=== PATIENT | female | born 1995 | race Caucasian/White ===

== ENCOUNTER → 2020-09-18 15:35 | Outpatient (CLI) | payer OTHER, SELFPAY ==
[2020-09-18 16:15] LABS: Absolute Lymphocyte Count 2.18 X10^3/uL (0.83-4.51); Basophil# 0.03 X10^3/uL; Basophil% 0.3 % (0-1); Eosinophil# 0.21 X10^3/uL; Eosinophils% 1.8 % (0-5); Hematocrit 36.9 % (37-47); Hemoglobin 11.9 g/dL (12.0-15.0); Lymphocyte # 2.18 X10^3/ul (4.0); Lymphocyte % 18.5 % (19-41); Mean Corp Hgb Conc 32.2 g/dL (32-36); Mean Corpuscular Hgb 27.2 pg (27.0-32.0); Mean Corpuscular Volume 84.4 fL (81-99); Mean Platelet Vol. 9.2 fl (6.2-12.0); Monocyte# 1.34 X10^3/uL; Monocyte% 11.4 % (0-10); NRBC Flagged by Analyzer 0 % (0-5); Neutrophil # 7.97 X10^3/uL (2.7-7.7); Neutrophil % 67.7 % (47-70); Platelet Count 338 K/mm3 (150-450); RBC Distribution Width CV 12.6 % (11.6-14.6); RBC Distribution Width SD 38.8 fl (35.1-43.9); Red Blood Count 4.37 M/mm3 (4.2-5.4); White Blood Count 11.8 K/mm3 (4.4-11.0)
[2020-09-19 09:25] LABS: HIV - WCH Non-Reactive (Nonreactive); Hepatitis B Surface Antigen Non-Reactive (Nonreactive); Hepatitis C Antibody Non-Reactive (Nonreactive); Rubella IgG Reactive (Nonreactive)
[2020-09-23 07:07] LABS: Chlamydia By Nucleic Acid AMP Negative (Negative)
[2020-09-23 09:25] LABS: Gonococcus By Nucleic Acid AMP Negative (Negative)
[2020-09-23 14:26] LABS: Chlamydia By Nucleic Acid AMP NEGATIVE; Gonococcus By Nucleic Acid AMP NEGATIVE; HPV Reflexed? NOT INDICATED
[2020-09-25 01:40] LABS: Prenatal RPR NONREACTIVE (NONREACTIVE)
== END ==
PROVIDERS: Visit Provider Obstetrics & Gynecology
DX: Z12.4 Encounter for screening for malignant neoplasm of cervix (principal); Z11.3 Encounter for screening for infections with a predominantly sexual mode of transmission; Z34.81 Encounter for supervision of other normal pregnancy, first trimester
CPT/HCPCS: 36415; 85025; 86703; 86762; 86803; 87086; 87088; 87340; 87491; 87591; 88142

== ENCOUNTER → 2021-01-27 16:57 | Outpatient (CLI) | payer OTHER, SELFPAY ==
[2021-01-27 17:22] LABS: Hematocrit 31.7 % (37-47); Hemoglobin 10.2 g/dL (12.0-15.0); Mean Corp Hgb Conc 32.2 g/dL (32-36); Mean Corpuscular Hgb 27.1 pg (27.0-32.0); Mean Corpuscular Volume 84.1 fL (81-99); Platelet Count 338 K/mm3 (150-450); RBC Distribution Width CV 13.5 % (11.6-14.6); RBC Distribution Width SD 41.6 fl (35.1-43.9); Red Blood Count 3.77 M/mm3 (4.2-5.4); White Blood Count 12.7 K/mm3 (4.4-11.0)
[2021-01-27 17:30] LABS: Glucose Challenge Gest 1H 50g 86 mg/dL (70-140)
== END ==
PROVIDERS: Visit Provider Obstetrics & Gynecology
DX: Z34.83 Encounter for supervision of other normal pregnancy, third trimester (principal)
CPT/HCPCS: 82950; 85027

== ENCOUNTER → 2021-04-20 16:13 | Outpatient (CLI) | payer OTHER, SELFPAY | PROVIDERS: Visit Provider Obstetrics & Gynecology | DX: Z36.85 Encounter for antenatal screening for Streptococcus B (principal) | CPT/HCPCS: 87081 ==

== ENCOUNTER → 2021-04-28 16:58 | Outpatient (CLI) | payer OTHER, SELFPAY ==
[2021-04-28 17:01] LABS: Mucous, Urine 0 SEEN /hpf (<or=2+); Red Blood Cells-Urine 0 SEEN /hpf (0-5)
[2021-04-28 17:50] LABS: Hematocrit 34.4 % (37-47); Hemoglobin 10.9 g/dL (12.0-15.0); Mean Corp Hgb Conc 31.7 g/dL (32-36); Mean Corpuscular Hgb 25.9 pg (27.0-32.0); Mean Corpuscular Volume 81.7 fL (81-99); Mean Platelet Vol. 10.6 fl (6.2-12.0); Platelet Count 345 K/mm3 (150-450); RBC Distribution Width CV 14.6 % (11.6-14.6); RBC Distribution Width SD 43.3 fl (35.1-43.9); Red Blood Count 4.21 M/mm3 (4.2-5.4)
[2021-04-28 18:03] LABS: Color, Urine Yellow (Yellow); Glucose, Dipstick Normal (Normal); Ketone-Dipstick Negative (Negative); Leukocyte Esterase-Dipstick 25 /ul (Negative); Nitrite-Dipstick Negative (Negative); Occult Blood-Urine Negative /ul (Negative); Protein-Dipstick Negative (Negative); Urine Bilirubin Dipstick Negative (Negative); Urine Clarity Clear (Clear); Urine Urobilinogen Normal (Normal)
[2021-04-28 18:10] LABS: Protein, Urine (Random) 11.1 mg/dL (<11.9); Protein:Creat Ratio 222 mg/g CRE (0-200)
[2021-04-28 18:13] LABS: ALB/GLOB Ratio 0.6 RATIO (0.9-2.4); AST(SGOT) 15 U/L (15-37); Alanine Aminotransfer ALT/SGPT 21 U/L (13-56); Albumin, Serum 2.9 g/dL (3.2-5.0); Alkaline Phosphatase 180 U/L (45-117); Anion Gap 5 (5-15); BUN 9 mg/dL (7-18); BUN/Creat Ratio 22.3 RATIO (10-20); Calcium,Total 9.4 mg/dL (8.5-10.1); Chloride 107 mmol/L (98-107); EST Glomerular Filtration Rate 202 mL/min (>60); Est Glom Filt Rate - Afr Amer 244 mL/min (>60); Globulin 4.5 g/dL (2.2-4.2); Glucose 62 mg/dL (74-106); LDH 177 U/L (84-246); Protein, Total 7.4 g/dL (6.4-8.2); Sodium Level 137 mmol/L (136-145)
[2021-04-28 18:35] LABS: Amorphous Sediment 1+; Bacteria 1+ /hpf (None Seen); Squamous Epithelial Cells - UA 0-5 SEEN /hpf (5-10); White Blood Cells 0-5 SEEN /hpf (0-5)
== END ==
PROVIDERS: Visit Provider Obstetrics & Gynecology
DX: I10 Essential (primary) hypertension (principal)
CPT/HCPCS: 36415; 80053; 81001; 82570; 83615; 84156; 85027

== ENCOUNTER 2021-05-06 12:30 | Inpatient (IN) | payer OTHER, SELFPAY ==
[2021-05-06] VITALS (14 sets, daily range): BP systolic 121–147; BP diastolic 75–100; PULSE 73–102; TEMP 36.5–37.2; O2SAT 96–98; BMI 34.9
[2021-05-06] MEDS: Lactated Ringers 1,000 ML 50 ML IV (13:35)
[2021-05-06 14:00] LABS: Absolute Neutrophil Count 7.6 X10^3/uL (2.0-7.7); Basophil# 0.03 X10^3/uL; Basophil% 0.3 % (0-1); Eosinophils% 0.9 % (0-5); Hematocrit 33.3 % (37-47); Hemoglobin 10.4 g/dL (12.0-15.0); Lymphocyte % 15.8 % (19-41); Mean Corp Hgb Conc 31.2 g/dL (32-36); Mean Corpuscular Hgb 25.7 pg (27.0-32.0); Mean Corpuscular Volume 82.2 fL (81-99); Monocyte# 1.31 X10^3/uL; Monocyte% 12.1 % (0-10); NRBC Flagged by Analyzer 0 % (0-5); Neutrophil # 7.56 X10^3/uL (2.7-7.7); Neutrophil % 70.1 % (47-70); Platelet Count 294 K/mm3 (150-450); RBC Distribution Width CV 15.2 % (11.6-14.6); RBC Distribution Width SD 44.9 fl (35.1-43.9); Red Blood Count 4.05 M/mm3 (4.2-5.4); White Blood Count 10.8 K/mm3 (4.4-11.0)
[2021-05-06 14:10] LABS: Protein:Creat Ratio 284 mg/g CRE (0-200)
[2021-05-06] MEDS: miSOPROStol 25 MCG TABLET VAGINAL (14:14)
[2021-05-06 14:16] LABS: ALB/GLOB Ratio 0.6 RATIO (0.9-2.4); AST(SGOT) 14 U/L (15-37); Alanine Aminotransfer ALT/SGPT 18 U/L (13-56); Albumin, Serum 2.6 g/dL (3.2-5.0); Alkaline Phosphatase 180 U/L (45-117); Anion Gap 7 (5-15); BUN 8 mg/dL (7-18); BUN/Creat Ratio 23.3 RATIO (10-20); Calcium,Total 8.8 mg/dL (8.5-10.1); Chloride 108 mmol/L (98-107); Creatinine, Serum 0.34 mg/dL (0.55-1.02); EST Glomerular Filtration Rate 244 mL/min (>60); Est Glom Filt Rate - Afr Amer 295 mL/min (>60); Estimated Creatinine Clearance 207.42 ml/min; Globulin 4.6 g/dL (2.2-4.2); Glucose 70 mg/dL (74-106); LDH 168 U/L (84-246); Potassium 3.9 mmol/L (3.5-5.1); Protein, Total 7.2 g/dL (6.4-8.2); Sodium Level 137 mmol/L (136-145); Uric Acid 3.3 mg/dL (2.6-6.0)
--- NOTE | 2021-05-06 17:04 | PCM.HP.OB ---
HPI - General General Date of Admission: 05/06/21 HPI Narrative KARY MORTON, is a 25 F who presents at 39 1/7 wga for IOL. She was sent from the office with elevated BPs to 140s-150s/90s. Denies headache, vision changes, abdominal pain. [facility] Medical History (Updated 05/06/21 @ 17:[address] Adamaris Lo MD) Depression Home Medications [id number] [] 1 tab PO DAILY 05/06/21 [History Last Taken 05/05/21] Allergy/AdvReac Type Severity Reaction Status Date / Time No Known Allergies Allergy Verified 05/06/21 13:22 Family History Mother Asthma Social History Smoking Status: Former smoker History 2 Elective abortions Hx Para 1 Spontaneous abortions Hx # Term Pregnancies 1 Ectopic pregnancies Hx # Pregnancies Multiple births # of living children 1 NST FHR Rate Baby A Baseline: 120 Variability:: Moderate Accelerations:: 15 x 15 Decelerations:: None NST Reactive:: Yes FHR Category:: Category I Uterine Activity:: irritability Vital Signs Vital Signs Vital Signs: 05/06/21 12:48 05/06/21 12:51 05/06/21 12:53 Temperature 97.7 F L Temperature Source Temporal Pulse Rate 85 85 91 Blood Pressure 140/94 H 140/94 H BP Systolic 140 140 BP Diastolic 94 94 Pulse Ox 98 98 05/06/21 13:06 05/06/21 13:22 05/06/21 13:36 Temperature Temperature Source Pulse Rate 102 H 88 77 Blood Pressure 147/100 H 126/85 H 134/88 H BP Systolic 147 126 134 BP Diastolic 100 85 88 Pulse Ox 05/06/21 13:51 05/06/21 14:49 05/06/21 16:55 Temperature 97.8 F Temperature Source Temporal Pulse Rate 99 80 76 Blood Pressure 137/89 H 133/76 H 121/78 H BP Systolic 137 133 121 BP Diastolic 89 76 78 Pulse Ox 98 Weight Weight: 89.539 kg Body Mass Index (BMI) 34.9 Physical Exam Narrative PHYSICAL EXAMINATION General Appearence: 25 yo female in no acute distress Vital Signs: AF, VSS Heart: RRR without rubs or gallops Lungs: CTA x 2 Breasts: deferred Abdomen: gravid, soft, nontender, nondistended Pelvis: Cervix: 1.5/50/-4, moderate and posterior Presentation: cephalic Fetus: Size: AGA Movement: present Heart: present NEUrO: +1 b/l LE DTRs, no clonus Labs Labs Labs: Blood Type B POSITIVE Antibody Screen NEGATIVE Hct 33.3 % (37-47) L Hgb 10.4 g/dL (12.0-15.0) L Rubella IgG Antibody Reactive (Nonreactive) Hep Bs Antigen Non-Reactive (Nonreactive) Neisseria gonorrhoeae DNA (MADDY) NEGATIVE HIV 1&2 Antibody Non-Reactive (Nonreactive) Glucose 1 Hr 50 gm 86 mg/dL (70-140) ACOG ANTEPARTUM RECORD - HISTORY AND PHYSICAL (05/06/2021) Name: KARY MORTON History of this : This is a 25 year old [id number] presents at 39 wks + 1 days gestation. OB Physician: CALLI CHAMORRO MD 's Physician: Rudi ...................................................................... : 1995 Age: 25 Address: [address] [place] [address] Phone: H) [phone] (O) [phone] Insurance Carrier: [facility] [phone] Emergency Contact: NED SANDRA [phone] ...................................................................... Final INOCENCIA: 05/12/21 By Ultrasound: PARITY: (G-Total Pregnancies P-Fullterm,Premature,Induced AB,Spont AB, Ectopics, Multiple,Living) INOCENCIA CONFIRMATION: By LMP: 12/08/20 Final INOCENCIA: 05/12/21 OB PROBLEM LIST: Declines genetic and carrier screening EPDS- 5 Hx of depression/anxiety, including pp depression. Treatment in high school for depression. 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 Illicit Drug Use - denies use of street drugs Sexual Activity - Residence - lives with Place of - [place], [place] Hours Worked - 20 Spouse-Sig Other Name - Ned Morton Spouse-Sig Other Occupation - rags laborer Spouse-Sig Other Phone No - [phone] Children Name(s) - Loan PRIOR DELIVERY HISTORY DEL DATE GEST LAB WT LB WT OZ TYPE ANES LABOR TX 06 Mar 13 39 24 5 15 Vag Local No ANTEPARTUM FLOW CHART VISIT GE RTC FU F F NC U U DATE WK MD WKS HT PN HR M SS BP ED WT NC GL D EF ST __ ____ ___ __ __ ___ __ __ __ ___ __ __ __ ___ __ 08 Apr 39 SHM 1 37 V + + 150/98 0 197 tr ne 1+ 40 -5 Mar JM 1 38 V + + 130/90 0 194 ne ne Mar JM 1 36 V + + O 132/94 sl 196 tr - Mar JM 2 34 T on + 132/82 0 192 ne ne Feb JM 2 32 V + + 126/80 0 187 ne ne Mar 27 JM 2 30 - + + 136/86 0 182 - - Feb 23 JM 2 28 - + + 128/68 sl 181 - - Feb 20 JM 4 25 - + + 132/84 0 178 - - January 16 JM 4 21 - + + 134/84 0 172 tr - Nov 10 JM 5 15 - + + 144/92 0 165 tr ne Nov 07 JM 4 12 - + 126/84 0 163 tr ne Oct 05 JM 4 7 - on US 122/86 0 162 - - ANTEPARTUM NOTE(S): May 06 2021: BP recl left side 148/90. occ bx olsen Apr 28 2021: Apr 20 2021: GBS and LARC, ctx's, pelvic pressure Apr 06 2021: Mar 23 2021: Mar 09 2021: Periodic Vulva itching,Good FM Feb 23 2021: Jan 27 2021: CBC,OGCT Today,Good FM Dec 30 2020: glucola given Nov 24 2020: Oct 28 2020: Sep 29 2020: fatigue COMPREHENSIVE ANTEPARTUM NOTE(S): May 06 2021: EFW 2971g (6lb9oz) at 36w6d US. BPs again elevated today. Denies sx preeclampsia. BPs elevated for last few weeks and prior hx gHTN vs. preeclampsia. To L for IOL and preeclamptic labs. Apr 28 2021: Kary is here with SO for PNV. At 38/0. States she is ready at home. Having good FM. Having no ctx. BP 130/90. Will retake lying on left side. No edema noted at this time Urine neg/neg. LSS retake after 10 min on left side 136/86 LSS Apr 28 2021: 38wks, initially with elevated BP but repeat after rest is wnl. Pt asymptomatic. For HELLP labs today. Scheduled for IOL at 39wks pitocin 05/11/21 at 7am. DELANEY Apr 23 2021: H taken to L. AB Apr 20 2021: Kary is here for a PNV w/ SO at 36 wks. Good FM. Sl edema in fingers. Occasional ctx's, constant pelvic pressure. GBS today, consent signed. LARC reviewed and declined. MK Apr 20 2021: 36 weeks, ultrasound today now cephalic and AGA. We will proceed with expectant management for vaginal delivery. GBS collected today. Apr 06 2021: Kary is here for PNV. Voicing no concerns. Feeling well with good FM. Having occasional BH ctx. No LOF or abnormal vag discharge. No edema noted. Urine neg/neg. LSS Apr 06 2021: 34wk, transverse, head maternal right. For growth u/s next vist. Educated on postion. Mar 23 2021: Kary is here for PNV. Feeling well and voices no concerns. Having good FM. No edema noted for this visit. Urine neg/neg. LSS Mar 23 2021: 32 weeks, no complaints. Will place in room for for bedside ultrasound next visit. DELANEY Mar 09 2021: Kary presents here today for PNV and reports that she has Good FM and feels well. Voiced concern regarding periodic vulvar area itching, then admits she shaves in that area as well. I explained about hair regrow and that can cause itching. She has tried alittle external Monistat, incase it was yeast. Declines offer for exam to check area. SHELL Mar 09 2021: 30wk, no complaints. DELANEY Feb 23 2021: Good FM. She has noticed some edema in her hands, can not wear her wedding bands sometimes. Taking an iron tablet once daily. kbm Feb 23 2021: 28wk, 1hr GTT wnl. DELANEY Jan 27 2021: 25wk, 1hr GTT today. DELANEY Dec 30 2020: Comp u/s today. Glucola given with instructions. LMT Dec 30 2020: 21wks, anatomy u/s wnl. Female, pt and FOB not happy. 1hr GTT next visit. DELANEY Nov 24 2020: Kary is here with SO for PNV. BP elevated slightly 144/92 on right, 142/92 on left. Will have her lay on left side and retake. Feeling well with adequate food and fluid intake. Having good FM. States she has no compliants. No edema noted. Urine tr/neg. LSS BP retaken after 10 min 132/88. LSS Nov 24 2020: 15wk, initially with elevated BP's, recheck wnl. Asymptomatic. For Anatomy u/s at next visit. DELANEY Oct 28 2020: Kary is here for PNV. Very quiet and withdrawn. States she is feeling fine and having very little nausea. Able to eat and drink without difficulty. Encouraged increase fluid intake. No edema present today. Urine tr/neg. No concerns for today. LSS Oct 28 2020: 12wks, nausea resolved. DELANEY Oct 02 2020: TELEHEALTH NOB VISIT, DURATION 35 MINUTES. Kary is a 25 year old with an INOCENCIA of 05/12/2021, current GA is 8 w 2 d. She resides with her , Ned, and their 4-1/2 year old daughter, Loan. Her daughter was delivered by at [place]. Past history updated. Kary plans to deliver at [facility], she prefers not to have an epidural, and she will breastfeed. She shares that she had reji Sep 29 2020: Kary is here for a PNV with FOB. Pt continues to have mild fatigue. Reports nausea last week but it has since decreased. Denies cramping and spotting. Reminded pt to push fluids. No concerns or questions expressed at this time. LADONNA Sep 29 2020: 7wk, u/s today with final INOCENCIA: 05/12/21 by LMP c/w 7wk U/s. PNP wnl, B pos. Declines genetic screening. DELANEY REVIEW OF SYSTEMS: GENERAL - Denies fever, or chills SKIN - Denies rash, new skin lesions, or change in moles EYES - Denies blurred vision, or change in visual acuity EARS - Denies ear pain, or difficulty hearing NOSE - Denies nasal congestion, discharge, or bleeding MOUTH - Denies sore throat, or difficulty swallowing NECK - Denies pain or swelling RESPIRATORY - Denies shortness of breath, cough, wheezing CARDIOVASCULAR - Denies palpitations, chest pain, orthopnea, PND, peripheral edema, syncope or claudication GASTROINTESTINAL - Denies nausea, vomiting, diarrhea, constipation, Denies abdominal pain, melena and or bright red blood GENITOURINARY - Denies dysuria, frequency of urination, urgency, or hesitancy MUSCULOSKELETAL - Denies joint or muscle pain, or back pain NEUROLOGICAL - Denies localized numbness, weakness, or tingling PSYCHIATRIC - Denies depression, anxiety, substance abuse or suicide attempts ENDOCRINE - Denies heat or cold intolerance, weight loss or gain, increasing thirst HEMATO-IMMUNOLOGIC - Denies easy bruising, bleeding, oral ulcerations or recurrent infections GENETICS SCREENING: Age 35+ years: No Thalassemia: No Neural Tube Defect: No Down Syndrome: No AILEEN-SACHS: No Sickle Cell Disease: No Hemophilia: No Musc. Dystrophy: No Cystic Fibrosis: No-declines screening Ngozi Chorea: No Mental Retardation: No Fragile X: No Other genetic: No Other defects: No SABs/still births: No Drugs since LMP: No INFECTION HISTORY: High risk AIDS: No High risk Hepatitis: No Exposed to TB: No Exposed to Herpes: No Rash/viral illness since LMP: No History of STD: No MENSTRUAL HISTORY: *Menses Amount/Duration: 5-6 DAYSMenses Regularity: RegularFrequency: monthlyMenarche (Age Onset): 11* PAST SUMMARY: PARITY: 1. Total Pregnancies............ 2 2. Full Term Pregnancies........ 1 3. Premature.................... 0 4. Abortions - Induced.......... 0 5. Abortions - Spontaneous...... 0 6. Ectopics..................... 0 7. Multiple Births.............. 0 8. Living Children.............. 1 PAST #1: Date of :.................. 03/03/16 Gestation Weeks:................ 39 Length of labor(hours):......... 24 Sex:............................ F Weight-lbs:............... 5 Weight-oz:................ 15 Type of Delivery:............... Vag Type of Anesthesia:............. Local Place of Delivery:.............. [facility] Treatment of Labor?:.... No Comment: IOL LAB TEST(S) ORDERED SINCE:08/15/20 05/06/2021 URIC ACID 05/06/2021 TYPE AND SCREEN 05/06/2021 PROTEIN+CREATININE RATIO,URINE 05/06/2021 LDH 05/06/2021 COMPREHENSIVE METABOLIC PROFIL 05/06/2021 CBC W/DIFF, AUTOMATED 04/28/2021 URINALYSIS, COMPLETE 04/28/2021 PROTEIN+CREATININE RATIO,URINE 04/28/2021 LDH 04/28/2021 COMPREHENSIVE METABOLIC PROFIL 04/28/2021 CBC-COMPLETE BLOOD CNT NO DIFF 04/23/2021 RULE OUT BETA STREP (GRP. B) 01/27/2021 GLUCOSE CHALLENGE GEST 1H 50G 01/27/2021 CBC-COMPLETE BLOOD CNT NO DIFF 09/24/2020 RPR 09/23/2020 LQD PAP RFX ASCUS-C/GC 09/23/2020 CHLAMYDIA/GC MADDY APTIMA 09/21/2020 CULTURE, URINE 09/19/2020 RUBELLA IGG 09/19/2020 HIV - WC 09/19/2020 HEPATITIS C ANTIBODY 09/19/2020 HEPATITIS B SURFACE ANTIGEN 09/18/2020 T AND S-NO CHARGE W/PNP 09/18/2020 CBC W/DIFF, AUTOMATED == ==== Order Observation Description Value Ref_Range A* Site == ==== Labor [facility]~[address] [place], [address]~ TYPE AND SCRE AB SCREEN GEL NEGATIVE ML LDH NOTE TAM LDH LDH 168 U/L 84-246 ML URIC ACID NOTE TAM URIC ACID URIC 3.3 mg/dL 2.6-6.0 ML The drugs N-Acetylcysteine and Metamizole may falsely depress this assay. COMPREHENSIVE M NOTE TAM COMPREHENSIVE M GLU 70 mg/dL 74-106 L ML Please note revised GLUCOSE reference range effective 09/30/2017. COMPREHENSIVE M BUN 8 mg/dL 7-18 ML COMPREHENSIVE M CREAT,SERUM 0.34 mg/dL 0.55-1.02 L ML The validity of the calculated GFR GFRAA in patients over 70 years has not been determined. Clinical correlation is essential. COMPREHENSIVE M EST GFR 244 mL/min >60 ML Non- GFR Calc COMPREHENSIVE M EST GFR - AA 295 mL/min >60 ML GFR Calc COMPREHENSIVE M ECRCL 207.42 ml/min ML COMPREHENSIVE M BUN/CRE 23.3 RATIO 10-20 H ML COMPREHENSIVE M T PROT 7.2 g/dL 6.4-8.2 ML COMPREHENSIVE M ALB 2.6 g/dL 3.2-5.0 L ML COMPREHENSIVE M GLOB 4.6 g/dL 2.2-4.2 H ML COMPREHENSIVE M A/G 0.6 RATIO 0.9-2.4 L ML COMPREHENSIVE M CA,TOTAL 8.8 mg/dL 8.5-10.1 ML COMPREHENSIVE M AST 14 U/L 15-37 L ML COMPREHENSIVE M ALK P 180 U/L 45-117 H ML COMPREHENSIVE M ALT 18 U/L 13-56 ML COMPREHENSIVE M T BILI 0.20 mg/dL 0.20-1.00 ML For patients on eltrombopag therapy, use of Dimension [employer] TBIL is not recommended. [facility] M NA 137 mmol/L 136-145 ML COMPREHENSIVE M POTASSIUM 3.9 mmol/L 3.5-5.1 ML COMPREHENSIVE M CL 108 mmol/L 98-107 H ML COMPREHENSIVE M CO2 22.0 mmol/L 21.0-32.0 ML COMPREHENSIVE M GAP 7 5-15 ML PROTEIN+CREATIN NOTE TAM PROTEIN+CREATIN UR CREAT 42.30 mg/dL NO RANGE EST. ML PROTEIN+CREATIN PROTEIN,UR.RAN. 12.0 mg/dL <11.9 H ML PROTEIN+CREATIN PROT:CRE RATIO 284 mg/g CRE 0-200 H ML CBC W/DIFF, AUT NOTE TAM CBC W/DIFF, AUT WBC 10.8 K/mm3 4.4-11.0 ML CBC W/DIFF, AUT RBC 4.05 M/mm3 4.2-5.4 L ML CBC W/DIFF, AUT HGB 10.4 g/dL 12.0-15.0 L ML CBC W/DIFF, AUT HCT 33.3 37-47 L ML CBC W/DIFF, AUT MCV 82.2 fL 81-99 ML CBC W/DIFF, AUT MCH 25.7 pg 27.0-32.0 L ML CBC W/DIFF, AUT MCHC 31.2 g/dL 32-36 L ML CBC W/DIFF, AUT RDW CV 15.2 11.6-14.6 H ML CBC W/DIFF, AUT RDW SD 44.9 fl 35.1-43.9 H ML CBC W/DIFF, AUT PLT 294 K/mm3 150-450 ML CBC W/DIFF, AUT MPV 11.0 fl 6.2-12.0 ML CBC W/DIFF, AUT NEUT% 70.1 47-70 H ML CBC W/DIFF, AUT LY% 15.8 19-41 L ML CBC W/DIFF, AUT MONO% 12.1 0-10 H ML CBC W/DIFF, AUT EO% 0.9 0-5 ML CBC W/DIFF, AUT BASO% 0.3 0-1 ML CBC W/DIFF, AUT IG% 0.800 0.0-0.9 ML IG% - Immature Granulocytes (promyelocytes, myelocytes and metamyelocytes) > 1% indicates that a LEFT SHIFT is Present. CBC W/DIFF, AUT ABSOLUTE NEUT 7.6 X10 3/uL 2.0-7.7 ML CBC W/DIFF, AUT ABSOLUTE LYMPH 1.70 X10 3/uL 0.83-4.51 ML CBC W/DIFF, AUT NUCLEATED RBC 0 0-5 ML URINALYSIS, COM NOTE TAM URINALYSIS, COM WBC 0-5 SEEN /hpf 0-5 ML URINALYSIS, COM RBC 0 SEEN /hpf 0-5 ML URINALYSIS, COM EPI,SQUAMOUS 0-5 SEEN /hpf 5-10 ML URINALYSIS, COM BACTERIA 1+ /hpf None Seen ML URINALYSIS, COM MUCUS 0 SEEN /hpf <or=2+ ML URINALYSIS, COM AMORPHOUS 1+ ML LDH NOTE TAM LDH LDH 177 U/L 84-246 ML COMPREHENSIVE M NOTE TAM COMPREHENSIVE M GLU 62 mg/dL 74-106 L ML Please note revised GLUCOSE reference range effective 09/30/2017. COMPREHENSIVE M BUN 9 mg/dL 7-18 ML [facility] CREAT,SERUM 0.40 mg/dL 0.55-1.02 L ML The validity of the calculated GFR GFRAA in patients over 70 years has not been determined. Clinical correlation is essential. [facility] M EST GFR 202 mL/min >60 ML Non- GFR Calc COMPREHENSIVE M EST GFR - AA 244 mL/min >60 ML GFR Calc COMPREHENSIVE M BUN/CRE 22.3 RATIO 10-20 H ML [facility] M T PROT 7.4 g/dL 6.4-8.2 ML COMPREHENSIVE M ALB 2.9 g/dL 3.2-5.0 L ML COMPREHENSIVE M GLOB 4.5 g/dL 2.2-4.2 H ML COMPREHENSIVE M A/G 0.6 RATIO 0.9-2.4 L ML COMPREHENSIVE M CA,TOTAL 9.4 mg/dL 8.5-10.1 ML COMPREHENSIVE M AST 15 U/L 15-37 ML COMPREHENSIVE M ALK P 180 U/L 45-117 H ML COMPREHENSIVE M ALT 21 U/L 13-56 ML COMPREHENSIVE M T BILI 0.20 mg/dL 0.20-1.00 ML For patients on eltrombopag therapy, use of Dimension [employer] TBIL is not recommended. COMPREHENSIVE M NA 137 mmol/L 136-145 ML COMPREHENSIVE M POTASSIUM 4.0 mmol/L 3.5-5.1 ML COMPREHENSIVE M CL 107 mmol/L 98-107 ML COMPREHENSIVE M CO2 25.0 mmol/L 21.0-32.0 ML COMPREHENSIVE M GAP 5 5-15 ML PROTEIN+CREATIN NOTE TAM PROTEIN+CREATIN UR CREAT 50.00 mg/dL NO RANGE EST. ML PROTEIN+CREATIN PROTEIN,UR.RAN. 11.1 mg/dL <11.9 ML PROTEIN+CREATIN PROT:CRE RATIO 222 mg/g CRE 0-200 H ML CBC-COMPLETE BL NOTE TAM CBC-COMPLETE BL WBC 13.0 K/mm3 4.4-11.0 H ML CBC-COMPLETE BL RBC 4.21 M/mm3 4.2-5.4 ML CBC-COMPLETE BL HGB 10.9 g/dL 12.0-15.0 L ML CBC-COMPLETE BL HCT 34.4 37-47 L ML CBC-COMPLETE BL MCV 81.7 fL 81-99 ML CBC-COMPLETE BL MCH 25.9 pg 27.0-32.0 L ML CBC-COMPLETE BL MCHC 31.7 g/dL 32-36 L ML CBC-COMPLETE BL RDW CV 14.6 11.6-14.6 ML CBC-COMPLETE BL RDW SD 43.3 fl 35.1-43.9 ML CBC-COMPLETE BL PLT 345 K/mm3 150-450 ML CBC-COMPLETE BL MPV 10.6 fl 6.2-12.0 ML RULE OUT BETA S NOTE TAM GLUCOSE CHALLEN NOTE TAM GLUCOSE CHALLEN GLU GEST 50G 1H 86 mg/dL 70-140 ML CBC-COMPLETE BL NOTE TAM CBC-COMPLETE BL WBC 12.7 K/mm3 4.4-11.0 H ML CBC-COMPLETE BL RBC 3.77 M/mm3 4.2-5.4 L ML CBC-COMPLETE BL HGB 10.2 g/dL 12.0-15.0 L ML CBC-COMPLETE BL HCT 31.7 37-47 L ML CBC-COMPLETE BL MCV 84.1 fL 81-99 ML CBC-COMPLETE BL MCH 27.1 pg 27.0-32.0 ML CBC-COMPLETE BL MCHC 32.2 g/dL 32-36 ML CBC-COMPLETE BL RDW CV 13.5 11.6-14.6 ML CBC-COMPLETE BL RDW SD 41.6 fl 35.1-43.9 ML CBC-COMPLETE BL PLT 338 K/mm3 150-450 ML CBC-COMPLETE BL MPV 10.0 fl 6.2-12.0 ML RPR NOTE TAM RPR RPR NONREACTIVE NONREACTIVE ML CULTURE, URINE NOTE TAM HEPATITIS C ANT NOTE TAM HEPATITIS C ANT HEPATITIS C AB Non-Reactive Nonreactive ML Non Reactive: < 0.8 Equivocal: >/= 0.8 to < 1.0 Reactive: >/= 1.0 The CDC recommends that a reactive/equivocal HCV antibody result be followed up by the HCV Nucleic Acid Amplification test (777642) HEPATITIS B LISSETTE NOTE TAM HEPATITIS B [place]TE HEPB SURFACE AG Non-Reactive Nonreactive ML HIV - [facility] NOTE TAM HIV - [facility] HIV - [facility] Non-Reactive Nonreactive ML RUBELLA IGG NOTE TAM RUBELLA IGG RUBELLA IGG Reactive Nonreactive ML Antibody Results Interpretation of Immune Status Non Reactive Presumed Non-Immune Equivocal Equivocal Reactive Presumed Immune Reason for Type AND Screen/Red Cells: Surgery? [facility]~[address] [place], [address]~ T AND BLOOD TYPE GEL B POSITIVE N ML T AND AB SCREEN GEL NEGATIVE N ML CBC W/DIFF, AUT NOTE TAM CBC W/DIFF, AUT WBC 11.8 K/mm3 4.4-11.0 H ML CBC W/DIFF, AUT RBC 4.37 M/mm3 4.2-5.4 ML CBC W/DIFF, AUT HGB 11.9 g/dL 12.0-15.0 L ML CBC W/DIFF, AUT HCT 36.9 % 37-47 L ML CBC W/DIFF, AUT MCV 84.4 fL 81-99 ML CBC W/DIFF, AUT MCH 27.2 pg 27.0-32.0 ML CBC W/DIFF, AUT MCHC 32.2 g/dL 32-36 ML CBC W/DIFF, AUT RDW CV 12.6 % 11.6-14.6 ML CBC W/DIFF, AUT RDW SD 38.8 fl 35.1-43.9 ML CBC W/DIFF, AUT PLT 338 K/mm3 150-450 ML CBC W/DIFF, AUT MPV 9.2 fl 6.2-12.0 ML CBC W/DIFF, AUT NEUT% 67.7 % 47-70 ML CBC W/DIFF, AUT LY% 18.5 % 19-41 L ML CBC W/DIFF, AUT MONO% 11.4 % 0-10 H ML CBC W/DIFF, AUT EO% 1.8 % 0-5 ML CBC W/DIFF, AUT BASO% 0.3 % 0-1 ML CBC W/DIFF, AUT IM GRAN % 0.300 % 0.0-0.9 ML IG% - Immature Granulocytes (promyelocytes, myelocytes and metamyelocytes) > 1% indicates that a LEFT SHIFT is Present. CBC W/DIFF, AUT ABSOLUTE NEUT 8.0 X10 3/uL 2.0-7.7 H ML CBC W/DIFF, AUT ABSOLUTE LYMPH 2.18 X10 3/uL 0.83-4.51 ML CBC W/DIFF, AUT NRBC, FLAGGED 0 % 0-5 ML LQD PAP RFX ASC NOTE TAM LQD PAP RFX ASC CHLAMY,NUC ACID NEGATIVE LCI LQD PAP RFX ASC GC BY NUC ACID NEGATIVE LCI CHLAMYDIA/GC NA NOTE TAM CHLAMYDIA/GC NA CHLAMY,NUC ACID Negative Negative LC CHLAMYDIA/GC NA GC BY NUC ACID Negative Negative LC Performed at: =[address] [id number] Senior Officer: Elaine Archibald MD, Phone: [phone] B POSITIVE Group B Beta Streptococcus is not isolated. Urine Culture ORGANISM 1: Lactobacillus species [place] Count >100,000 Assessment & Plan (1) : QUALIFIERS: Weeks of gestation: 39 weeks Qualified Code(s): Z3A.39 - 39 weeks gestation of (2) Gestational hypertension: QUALIFIERS: Trimester: third trimester Qualified Code(s): O13.3 - Gestational [-induced] hypertension without significant proteinuria, third trimester PLAN: Cytotec for IOL Cat I FHR No si/sx preeclampsia and labs wnl
[2021-05-06] MEDS: Mag Hydrox/Al Hydrox/Simeth 30 ML UDC PO (17:36)
[2021-05-06] MEDS: 0.9% Saline Lock 10 ML Syringe IV (17:37)
[2021-05-06] MEDS: miSOPROStol 25 MCG TABLET PO ×2 (18:23→22:37)
[2021-05-07] VITALS (26 sets, daily range): BP systolic 124–158; BP diastolic 67–94; PULSE 77–206; TEMP 36.2–37.2; O2SAT 80–99
[2021-05-07] MEDS: miSOPROStol 25 MCG TABLET PO ×2 (02:29→06:41)
--- NOTE | 2021-05-07 10:00 | PCM.PN.OB ---
Subjective Subjective Contractions intensity. No leaking of fluid. Denies headache, vision changes. + FM. Objective Data Objective Data Vital Signs: Vital Signs Temp Pulse BP Pulse Ox 97.4 F L 108 H 135/67 H 97 05/07/21 16:05 05/07/21 17:20 05/07/21 17:20 05/07/21 16:05 Weight: 89.539 kg Body Mass Index (BMI) 34.9 Intake & Output: Intake and Output for Last 24 Hours 05/05/21 05/06/21 05/07/21 23:59 23:59 23:59 Intake Total 196.67 / 196.67 Balance 196.67 / 196.67 Lab / Micro Data Result Diagrams: 05/06/21 13:35 05/06/21 13:35 Micro: Microbiology 05/06/21 19:30 Nasal Secretion SARS-CoV-2 Antigen (Rapid) - Final Physical Exam Narrative GEN - NAD< AAo x 3. FHR 140, moderate variability, + accelerations, no decelerations TOCO 3/10 min SVE 3/60/-3, moderate, midposition Assessment & Plan (1) Gestational hypertension: QUALIFIERS: Trimester: third trimester Qualified Code(s): O13.3 - Gestational [-induced] hypertension without significant proteinuria, third trimester (2) : QUALIFIERS: Weeks of gestation: 39 weeks Qualified Code(s): Z3A.39 - 39 weeks gestation of PLAN: Amniotomy performed with clear fluid Will start pitocin if no significant progress at noon Cat I FHR
[2021-05-07] MEDS: 0.9% Saline Lock 10 ML Syringe IV (12:01)
[2021-05-07] MEDS: Oxytocin 10 UNITS/ML Vial IM (18:15)
--- NOTE | 2021-05-07 19:36 | OP.PCM_ITS ---
Assessment & Plan (1) : QUALIFIERS: Weeks of gestation: 39 weeks Qualified Code(s): Z3A.39 - 39 weeks gestation of (2) Gestational hypertension: QUALIFIERS: Trimester: third trimester Qualified Code(s): O13.3 - Gestational [-induced] hypertension without significant proteinuria, third trimester Vaginal Delivery Maternal Presentation Maternal Presentation: Medically Indicated Induction Type of Induction: Amniotomy and Cytotec Medical Reason for Induction: Gestational Hypertension Operative Information Date of Procedure: 05/07/21 Pre-Operative Diagnosis: 1. 39 2/7 weeks gestation 2. Gestational hypertension Post-Operative Diagnosis: 1. 39-2/7 weeks gestation 2. Gestational hypertension Surgery / Procedure Performed: Spontaneous Vaginal Delivery Type of Anesthesia: Local with 1% Lidocaine Estimated Blood Loss: 250 ml Findings Description of Procedure: Patient was 9 cm on my arrival. She labor to 10 cm with a bulging perineum. We began pushing and she delivered a female infant in LEIA. Nuchal cord was reduced and mouth and nares were bulb suctioned at the perineum. The was placed on the maternal abdomen and further attended by nursery personnel. The cord was doubly clamped and cut at approximately 3 minutes of life. The placenta delivered spontaneously and appeared intact on inspection. A second-degree perineal laceration was repaired using 3-0 Vicryl Rapide followi ng injection of 1% lidocaine. There was good hemostasis. Sponge and needle counts were correct x2. Presentation: Vertex Time of Membrane Rupture: 92705/07/21 Amniotic Fluid Description: Clear Placental Delivery Description: Spontaneous Placenta Disposition: [facility] Cord Vessel Description: 3 Vessels Cord Entanglement: Around neck x 1, loose Nuchal Cord Compression: Without compression Infant A Gender: Female (1 minute): 8 (5 minute): 9 Delayed Cord Clamping: Yes Post Vaginal Delivery Medications Given After Delivery: - (IM Pitocin) Laceration: Midline, Perineal Extension/lac and 2nd degree Complication Complications: None
[2021-05-07] MEDS: Ibuprofen 600 MG Tablet PO (20:16)
[2021-05-08 00:35] VITALS: BP 144/85; PULSE 105; RESP 18; TEMP 37.1
[2021-05-08 05:35] VITALS: BP 152/89; PULSE 81; RESP 18; TEMP 36.7
--- NOTE | 2021-05-08 07:22 | NURSING ---
report given to Tomer Jones RN and Jose Luis Mcgowan RN who are assuming care of pt at this time
[2021-05-08 08:00] VITALS: BP 121/80; PULSE 98; RESP 16; TEMP 36.8
--- NOTE | 2021-05-08 08:31 | PCM.PN.OB ---
Subjective Subjective No issues overnight. Denies headache, vision changes or abdominal pain. is going well. Objective Data Objective Data Vital Signs: Vital Signs Temp Pulse Resp BP Pulse Ox 98.0 F 81 18 152/89 H 97 05/08/21 05:35 05/08/21 05:35 05/08/21 05:35 05/08/21 05:35 05/07/21 20:18 Oxygen Delivery Method Room Air Weight: 89.539 kg Body Mass Index (BMI) 34.9 Intake & Output: Intake and Output for Last 24 Hours 05/06/21 05/07/21 05/08/21 23:59 23:59 23:59 Intake Total 196.67 / 196.67 0 / 0 Balance 196.67 / 196.67 0 / 0 Lab / Micro Data Result Diagrams: 05/06/21 13:35 05/06/21 13:35 Micro: Microbiology 05/06/21 19:30 Nasal Secretion SARS-CoV-2 Antigen (Rapid) - Final Physical Exam Const alert, oriented x3 and no apparent distress Resp normal respiratory effort and normal air movement Cardio regular rate, regular rhythm, S1 normal heart sound and S2 normal heart sound Narrative: Lochia scant, mild perineal edema Uterus Palpation: uterus fundus firm and other OB fundus nontender Extremity no calf tenderness Neuro oriented x3 Assessment & Plan (1) (spontaneous vaginal delivery): PLAN: PPD#1 s/p No si/sx worsening HTN or preeclampsia Rh positive Routine care
[2021-05-08 12:30] VITALS: BP 129/78; PULSE 99; RESP 16; TEMP 36.9
[2021-05-08 16:00] VITALS: BP 133/84; PULSE 83; RESP 16; TEMP 36.8
--- NOTE | 2021-05-08 16:52 | PCM.DC ---
Discharge Instructions Diet Discharge Diet: No restrictions Activity Discharge Activity: Return to Normal Activity May resume sexual activity in: 6 weeks Lifting Restrictions: 10-20 lb Dressing / Incision Call your doctor if you observe: Fever of 101 or Higher, Using more than 1 pad per hour, Shortness of breath, Chest pain, Calf discomfort, Uncontrolled pain and - (Persistent or severe headache) Follow Up Care Please Follow Up With: Diaz Mohan MD When: 7-10 days for blood pressure check 6 weeks for visit Test Results: Test results from this visit will be discussed in further detail at your follow-up appointment, if applicable. Discharge Plan Admission Admit Date/Time: 05/06/21 12:30 Primary Reason for Your Visit: Vaginal delivery, Gestational hypertension Attending Provider: Ehsan Kwon Instructions Patient Instructions: After a Vaginal Discharge Orders/Prescriptions Prescriptions: New ibuprofen 600 mg Tablet 600 mg PO Q8H PRN PRN (Reason: Pain Score 1-3) Qty: 30 RF: 0 Continued [id number] 1 mg Tablet 1 tab PO DAILY RF: 0 Disposition Disposition (needs filled in before D/C Order can be placed): Home, Self Care
== END 2021-05-08 18:45 | disposition home or self-care (01) | DRG 807 ==
PROVIDERS: Obstetrics & Gynecology; Admitting Provider Obstetrics & Gynecology; Referring Provider Obstetrics & Gynecology; Visit Provider Obstetrics & Gynecology
DX: O13.3 Gestational [pregnancy-induced] hypertension without significant proteinuria, third trimester (principal); Z37.0 Single live birth; O70.1 Second degree perineal laceration during delivery; O69.81X0 Labor and delivery complicated by cord around neck, without compression, not applicable or unspecified; Z3A.39 39 weeks gestation of pregnancy; Z87.891 Personal history of nicotine dependence; Z82.5 Family history of asthma and other chronic lower respiratory diseases
CPT/HCPCS: 59025; 59050; 80053; 82570; 83615; 84156; 84550; 85025; 86850; 86900; 86901; 87426; 99218; J7120; A4216; G0378